=== PATIENT | male | born 1955 | race Caucasian/White ===

== ENCOUNTER 2024-06-13 19:55 | Emergency (ER) | payer MEDICARE ==
[~2024-06-13] VITALS: Ht 167.6 cm; Wt 70.0 kg
[2024-06-13 20:03] VITALS: BP 164/77; PULSE 110; RESP 18; TEMP 36.8; O2SAT 100
== END 2024-06-13 20:34 | disposition left against medical advice (07) ==
LOC: ER 19:55
DX: R42 Dizziness and giddiness (principal); J45.909 Unspecified asthma, uncomplicated; I10 Essential (primary) hypertension; Z53.21 Procedure and treatment not carried out due to patient leaving prior to being seen by health care provider